=== PATIENT | male | born 1950 | race Caucasian/White ===

== ENCOUNTER → 2016-07-16 | Day surgery (SDC) | payer MEDICARE, BC ==
[~2016-07-16] MED LIST: ASCO500T3 PO; ASPI81TA2 PO; BUDE10.22 IH; BUPR150T15 PO; CHOL20003 PO; DEME150T PO; DULO20CA PO; DULO30CA2 PO; FENTANYL PF 100 MCG/2 ML VIAL. IV PRN; GLUC1TAB33 PO; HYAL1CAP PO; HYDROMORPHONE 2 MG/ML VIAL. IV PRN; IV RINGERS,LACTATED 1000ML 1,000 ML IV SCH; LEVO150T5 PO; LEVO500T38 PO; LIDOCAINE 1% 1 ML SYRINGE. ID PRN; LOSA50TA6 PO; METF500T4 PO; MORPHINE SULFATE 2 MG/ML DISP.SYRIN. IV PRN; MULT-658 PO; OMEP20TA PO; ONDANSETRON PF 4 MG/2 ML VIAL. IV PRN; PROCHLORPERAZINE 10 MG/2 ML VIAL. IV PRN; PROPOFOL 20 ML IV ONE; RESV100C PO; SIMV40TA3 PO; TAMS0.4C2 PO; TEST200V IM; TIOT18CA IH; UBIQ75CA PO; [UNRECOGNIZED DRUG - OTHER] PO; [UNRECOGNIZED DRUG - OTHER] PO; [UNRECOGNIZED DRUG - OTHER] PO; [UNRECOGNIZED DRUG - OTHER] PO
[2016-07-16 08:15] VITALS: BP 118/68
== END | disposition home or self-care (01) ==
LOC: ENDOS 06:18
PROVIDERS: ATTEND Internal Medicine Gastroenterology
DX: Z12.11 Encounter for screening for malignant neoplasm of colon (principal); K64.1 Second degree hemorrhoids; E78.00 Pure hypercholesterolemia, unspecified; I10 Essential (primary) hypertension; J45.909 Unspecified asthma, uncomplicated; E66.9 Obesity, unspecified; K21.9 Gastro-esophageal reflux disease without esophagitis; E11.9 Type 2 diabetes mellitus without complications; F41.9 Anxiety disorder, unspecified; F17.200 Nicotine dependence, unspecified, uncomplicated
CPT/HCPCS: G0105; J2704

== ENCOUNTER → 2016-07-23 | Outpatient (CLI) | payer MEDICARE, BC ==
[2016-07-16 08:15] VITALS: BP 118/68
[~2016-07-23] MED LIST changes: -FENTANYL PF 100 MCG/2 ML VIAL. IV PRN; -HYDROMORPHONE 2 MG/ML VIAL. IV PRN; -IV RINGERS,LACTATED 1000ML 1,000 ML IV SCH; -LIDOCAINE 1% 1 ML SYRINGE. ID PRN; -MORPHINE SULFATE 2 MG/ML DISP.SYRIN. IV PRN; -ONDANSETRON PF 4 MG/2 ML VIAL. IV PRN; -PROCHLORPERAZINE 10 MG/2 ML VIAL. IV PRN; -PROPOFOL 20 ML IV ONE
--- NOTE | 2016-07-23 13:40 | RAD ---
INDICATION: FOLLOW UP PLEURITIC FLUID COMPARISON: 05/16/2016 FINDINGS: 2 views of chest obtained. Degenerative changes of the spine. Mild blunting left costophrenic angle. Cardiac silhouette not grossly enlarged. IMPRESSION: Mild blunting left costophrenic angle again seen which could be from small pleural effusion.
== END | disposition home or self-care (01) ==
LOC: RAD 12:52
PROVIDERS: ATTEND Internal Medicine Critical Care Medicine
DX: J90 Pleural effusion, not elsewhere classified (principal); J98.4 Other disorders of lung
CPT/HCPCS: 71020

== ENCOUNTER → 2019-06-22 | Day surgery (SDC) | payer MEDICARE, BC ==
[~2019-06-22] MED LIST changes: +ASPI-630 PO; -ASPI81TA2 PO; -CHOL20003 PO; +CHOL20009 PO; +IV RINGERS,LACTATED 1000ML 1,000 ML IV SCH; -LEVO500T38 PO; +LEVO500T59 PO; +LIDOCAINE 2% PF 5 ML VIAL. ONE; +LOSA-73 PO; -LOSA50TA6 PO; +METF500T16 PO; -METF500T4 PO; +METO50TA6 PO; -OMEP20TA PO; +OMEP20TA8 PO; +PROPOFOL 40 ML IV ONE; +SIMV40TA18 PO; -SIMV40TA3 PO; -TEST200V IM; +TEST200V32 IM
[2019-06-22 08:00] VITALS: BP 131/64
== END ==
LOC: ENDOS 06:00
PROVIDERS: ATTEND Internal Medicine Gastroenterology
DX: D50.9 Iron deficiency anemia, unspecified (principal); K29.50 Unspecified chronic gastritis without bleeding; K64.0 First degree hemorrhoids; J44.9 Chronic obstructive pulmonary disease, unspecified; E11.9 Type 2 diabetes mellitus without complications; E78.00 Pure hypercholesterolemia, unspecified; F41.9 Anxiety disorder, unspecified; F15.90 Other stimulant use, unspecified, uncomplicated; F17.210 Nicotine dependence, cigarettes, uncomplicated; Z79.82 Long term (current) use of aspirin; Z86.010 Personal history of colon polyps; Z79.84 Long term (current) use of oral hypoglycemic drugs
CPT/HCPCS: 43235; 45378; J2001; J2704

== ENCOUNTER → 2020-05-18 | Outpatient (CLI) | payer MEDICARE, BC ==
[2019-06-22 08:00] VITALS: BP 131/64
[~2020-05-18] MED LIST changes: -IV RINGERS,LACTATED 1000ML 1,000 ML IV SCH; -LIDOCAINE 2% PF 5 ML VIAL. ONE; -PROPOFOL 40 ML IV ONE
--- NOTE | 2020-05-18 16:40 | KCIC ---
EXAM: CT CHEST WITHOUT CONTRAST HISTORY: Pleural effusion, COPD, smoker for 50 years, evaluate for mass. COMPARISON: CT chest 05/09/2016 TECHNIQUE: Helical CT of the chest performed without contrast. Coronal and sagittal reformats were o btained. One or more of the following individualized dose reduction techniques were utilized for this examinat ion: 1. Automated exposure control 2. Adjustment of the mA and/or kV according to patient size 3. Use of iterative reconstruction technique. FINDINGS: Thyroid gland and thoracic inlet: Unremarkable. Heart and great vessels: The heart is normal in size. There are coronary artery calcifications. No pe ricardial effusion. Thoracic aorta is normal in caliber. Mediastinum and susana: Multiple small mediastinal and hilar lymph nodes are unchanged from 05/09/2016. Lungs and pleura: There is a decreased, small left pleural effusion. A 3 mm pulmonary nodule in the l ingula is unchanged. No new or suspicious pulmonary nodule. Mild diffuse subpleural reticular changes are mildly increased and are nonspecific. There are some small subpleural cysts along the lateral in ferior right middle lobe. Mild atelectasis in the posterior left lower lobe. Chest wall and axillae: No axillary lymphadenopathy. Chest wall is unremarkable. Upper abdomen: Unremarkable. 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 IMPRESSION: 1. No suspicious pulmonary nodule. 2. Decreased, small left pleural effusion. Electronically signed by: Neli Payne MD (05/18/2020 4:37 PM) [place] [id number]
== END ==
LOC: KCIC CT 09:55
PROVIDERS: ATTEND Internal Medicine Critical Care Medicine
DX: J90 Pleural effusion, not elsewhere classified (principal); R91.1 Solitary pulmonary nodule; F17.200 Nicotine dependence, unspecified, uncomplicated; M47.814 Spondylosis without myelopathy or radiculopathy, thoracic region
CPT/HCPCS: 71250